=== PATIENT | female | born 1995 | race African-American/Black ===

== ENCOUNTER 2018-08-02 08:30 | Emergency (ER) | payer SELFPAY ==
[~2018-08-02] VITALS: Ht 170.2 cm; Wt 47.6 kg
[2018-08-02 08:30] VITALS: BP 122/73
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
[2018-08-02] MEDS ORDERED: IBUP-1007 PO (09:10)
== END 2018-08-02 09:28 | disposition home or self-care (01) ==
LOC: ER 08:30
DX: M79.89 Other specified soft tissue disorders (principal); M79.644 Pain in right finger(s); J45.909 Unspecified asthma, uncomplicated
CPT/HCPCS: 73130; 99284

== ENCOUNTER 2019-04-16 19:52 | Emergency (ER) | payer SELFPAY ==
[~2019-04-16] VITALS: Ht 170.2 cm; Wt 49.9 kg
[~2019-04-16 19:52] MED LIST: IBUP-1007 PO
[2019-04-16 20:05] VITALS: BP 124/79
[2019-04-16] MEDS ORDERED: AMOX1TAB61 PO (21:04)
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
[2019-04-16] MEDS ORDERED: KETOROLAC 30 MG/ML VIAL. IM ONE (21:15)
== END 2019-04-16 21:30 | disposition home or self-care (01) ==
LOC: ER 19:52
DX: K04.7 Periapical abscess without sinus (principal); J45.909 Unspecified asthma, uncomplicated
CPT/HCPCS: 96372; 99283; J1885

== ENCOUNTER 2020-03-18 08:47 | Emergency (ER) | payer SELFPAY ==
[~2020-03-18] VITALS: Ht 170.2 cm; Wt 50.0 kg
[~2020-03-18 08:47] MED LIST changes: +AMOX1TAB61 PO
[2020-03-18 09:04] VITALS: BP 124/78
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
== END 2020-03-18 10:03 | disposition home or self-care (01) ==
LOC: ER 08:47
DX: R05 Cough (principal); J45.909 Unspecified asthma, uncomplicated
CPT/HCPCS: 99281